=== PATIENT | female | born 1945 | race Caucasian/White ===

== ENCOUNTER → 2016-08-11 | Outpatient (CLI) | payer MEDICARE | END | disposition home or self-care (01) | LOC: PCVCCLINIC 09:53 | PROVIDERS: ATTEND Internal Medicine Cardiovascular Disease | DX: R01.1 Cardiac murmur, unspecified (principal); I10 Essential (primary) hypertension; E78.5 Hyperlipidemia, unspecified; R06.09 Other forms of dyspnea | CPT/HCPCS: 36415; 93005; G0463 ==

== ENCOUNTER → 2016-11-09 | Outpatient (CLI) | payer MEDICARE | END | disposition home or self-care (01) | LOC: PCVCCLINIC 14:36 | PROVIDERS: ATTEND Internal Medicine Cardiovascular Disease | DX: I25.10 Atherosclerotic heart disease of native coronary artery without angina pectoris (principal); I10 Essential (primary) hypertension; I35.0 Nonrheumatic aortic (valve) stenosis; E78.00 Pure hypercholesterolemia, unspecified; Z79.82 Long term (current) use of aspirin | CPT/HCPCS: 93005; G0463 ==

== ENCOUNTER → 2017-05-17 | Outpatient (CLI) | payer MEDICARE | END | disposition home or self-care (01) | LOC: PCVCIMAG 14:08 | PROVIDERS: ATTEND Internal Medicine Cardiovascular Disease | DX: I35.0 Nonrheumatic aortic (valve) stenosis (principal); I10 Essential (primary) hypertension; E78.5 Hyperlipidemia, unspecified | CPT/HCPCS: 36415; 93005; 93306 ==

== ENCOUNTER → 2017-11-29 | Outpatient (CLI) | payer MEDICARE | END | disposition home or self-care (01) | LOC: PCVCCLINIC 13:30 | DX: I10 Essential (primary) hypertension (principal); E78.5 Hyperlipidemia, unspecified; I35.0 Nonrheumatic aortic (valve) stenosis | CPT/HCPCS: 93005; G0463 ==

== ENCOUNTER → 2018-06-06 | Outpatient (CLI) | payer MEDICARE ==
--- NOTE | 2018-06-06 14:08 | PCVCIMAG ---
APPROVED REPORT Study performed: 06/06/2018 13:11:35 EXAM: Comprehensive 2D, Doppler, and color-flow Echocardiogram Patient Location: Echo lab Status: routine BSA: 1.74 HR: 75 bpmBP: 140/80 mmHg Rhythm: NSR Other Information Study Quality: Good Risk Factors: Cardiac Risk Factors: Hyperlipidemia, HTN Indications Aortic stenosis 2D Dimensions IVSd: 14.48 (7-11mm)LVOT Diam: 17.32 (18-24mm) LVDd: 42.32 mm PWd: 12.46 (7-11mm)Ascending Ao: 38.20 (22-36mm) LVDs: 20.10 (25-40mm) Left Atrium: 39.26 (27-40mm) Aortic Root: 30.11 mm Volumes Left Atrial Volume (Systole) Single Plane 4CH: 50.64 mLSingle Plane 2CH: 31.86 mL LA ESV Index: 24.00 mL/m2 Aortic Valve AoV Peak Tor.: 3.13 m/s AO Peak Gr.: 39.20 mmHgLVOT Max P.50 mmHg AO Mean Gr.: 22.09 mmHgLVOT Mean P.47 mmHg AO V2 Mean: 2.23 m/sLVOT Max V: 1.28 m/s AO V2 VTI: 68.21 cm DAHLIA (VTI): 0.90 [id number] V1 VTI: 26.04 cm DAHLIA Vmax: 0.96 cm2 AI Vmax: 4.19 m/s AI [place]: 2.66 m/s2 AI PHT: 481.27 ms Mitral Valve E/A Ratio: 0.7 MV Decel. Time: 225.21 ms MV E Max Tor.: 0.78 m/s MV A Tor.: 1.12 m/s MV PHT: 65.31 ms IVRT: 138.41 ms TDI E/Lateral E': 9.75E/Medial E': 11.14 Medial E' Tor.: 0.07 m/s Lateral E' Tor.: 0.08 m/s Pulmonary Valve PV Peak Gr.: 2.61 mmHg Pulmonary Vein P Vein S: 0.64 m/sP Vein A: 0.31 m/s P Vein D: 0.36 m/sP Vein A Dur.: 86.5 msec P Vein S/D Ratio: 1.78 Tricuspid Valve TR Peak Tor.: 2.49 m/s TR Peak Gr.: 24.77 mmHg Left Ventricle The left ventricle is normal size. There is normal LV segmental wall motion. Mild concentric left ventricular hypertrophy. Left ventricular systolic function is normal. The left ventricular ejection fraction is within the normal range. LVEF is 65%. Grade I - abnormal relaxation pattern. Right Ventricle The right ventricle is normal size. The right ventricular systolic function is normal. Atria The left atrium size is normal. The right atrium size is normal. Aortic Valve The Aortic valve is moderately sclerotic. Mild aortic regurgitation. Mild to moderate aortic stenosis. Peak gradient is 39mmHg. Mean gradient is 23mmHg. Mitral Valve The mitral valve is normal in structure. There is no mitral valve regurgitation noted. No evidence of mitral valve stenosis. Tricuspid Valve The tricuspid valve is normal in structure. Trace tricuspid regurgitation. Pulmonary artery pressure is 32mmHg. Pulmonic Valve The pulmonary valve is normal in structure. There is no pulmonic valvular regurgitation. Great Vessels The aortic root is normal in size. IVC is normal in size and collapses >50% with inspiration. Pericardium There is no pericardial effusion. <Conclusion> The left ventricle is normal size. Mild concentric left ventricular hypertrophy. Left ventricular systolic function is normal. Grade I - abnormal relaxation pattern. The right ventricle is normal size. The left atrium size is normal. Mild aortic regurgitation. Mild to moderate aortic stenosis. The mitral valve is normal in structure. Trace tricuspid regurgitation. Pulmonary artery pressure is 32mmHg.
== END | disposition home or self-care (01) ==
LOC: PCVCIMAG 13:03
PROVIDERS: ATTEND Internal Medicine Cardiovascular Disease
DX: I35.2 Nonrheumatic aortic (valve) stenosis with insufficiency (principal); I10 Essential (primary) hypertension; E78.5 Hyperlipidemia, unspecified; Z79.82 Long term (current) use of aspirin
CPT/HCPCS: 93005; 93306; G0463

== ENCOUNTER → 2019-06-12 | Outpatient (CLI) | payer MEDICARE ==
--- NOTE | 2019-06-12 14:33 | PCVCIMAG ---
APPROVED REPORT Study performed: 06/12/2019 13:13:55 EXAM: Comprehensive 2D, Doppler, and color-flow Echocardiogram Patient Location: Echo lab Room #: 2Status: routine BSA: 1.74 HR: 84 bpm Rhythm: NSR Other Information Study Quality: Good Risk Factors: Cardiac Risk Factors: HTN, Hyperlipidemia Indications Aortic Valve Disease Hypertension/HDD 2D Dimensions IVSd: 10.36 (7-11mm)LVOT Diam: 17.46 (18-24mm) LVDd: 38.88 mm PWd: 10.42 (7-11mm)Ascending Ao: 33.44 (22-36mm) LVDs: 20.53 (25-40mm) Left Atrium: 30.60 (27-40mm) Aortic Root: 28.94 mm LV Single Plane 4CH: 69.82 % LV Single Plane 2CH: 63.94 % Biplane EF: 68.0 % Volumes Left Atrial Volume (Systole) Single Plane 4CH: 64.06 mLSingle Plane 2CH: 41.43 mL Biplane LA Volume: 54.00 mLLA ESV Index: 31.00 mL/m2 Aortic Valve AoV Peak Tor.: 3.32 m/s AO Peak Gr.: 48.58 mmHgLVOT Max P.69 mmHg AO Mean Gr.: 27.04 mmHgLVOT Mean P.32 mmHg AO V2 Mean: 2.47 m/sLVOT Max V: 1.43 m/s AO V2 VTI: 75.13 cmLVOT Mean V: 1.11 m/s DAHLIA (VTI): 1.04 [id number] V1 VTI: 32.62 cm DAHLIA Vmax: 1.03 cm2 AI Vmax: 4.71 m/sSV (LVOT): 78.06 mL AI [place]: 3.51 m/s2 AI PHT: 390.33 ms Mitral Valve E/A Ratio: 0.7 MV Decel. Time: 175.19 ms MV E Max Tor.: 0.76 m/s MV A Tor.: 1.04 m/s MV VTI: 190.15 mm MVA VTI: 410.53 mm2 IVRT: 86.51 ms Pulmonary Valve PV Peak Tor.: 0.97 m/sPV Peak Gr.: 3.75 mmHg Pulmonary Vein P Vein S: 1.00 m/sP Vein A: 0.33 m/s P Vein D: 0.42 m/sP Vein A Dur.: 90.0 msec P Vein S/D Ratio: 2.38 Tricuspid Valve TR Peak Tor.: 2.67 m/s TR Peak Gr.: 28.57 mmHg TV Vmax: 2.36 m/sPA Pressure: 360.06 mmHg Shunt Evaluation QP/QS: 0.03 Left Ventricle The left ventricle is normal size. There is normal LV segmental wall motion. There is normal left ventricular wall thickness. Left ventricular systolic function is normal. The left ventricular ejection fraction is within the normal range. LVEF is 65-70%. Grade I - abnormal relaxation pattern. Right Ventricle The right ventricle is normal size. The right ventricular systolic function is normal. Atria The left atrium size is normal. The right atrium size is normal. Aortic Valve Aortic valve is probably trileaflet. Aortic valve leaflets are moderately sclerotic with decreased opening. Moderate aortic regurgitation. There is moderate valvular aortic stenosis. Maximum pressure gradient of 49 mmHg and mean pressure gradient of 27 mmHg. Mitral Valve The mitral valve is normal in structure. There is no mitral valve regurgitation noted. No evidence of mitral valve stenosis. Tricuspid Valve The tricuspid valve is normal in structure. Mild tricuspid regurgitation with a PA pressure of 36 mmHg. Mild pulmonary hypertension. Pulmonic Valve The pulmonary valve is normal in structure. There is no pulmonic valvular regurgitation. Great Vessels The aortic root is normal in size. The ascending aorta is normal in size. Aortic arch is normal in caliber. IVC is normal in size and collapses >50% with inspiration. Pericardium There is no pericardial effusion. There is no pleural effusion. <Conclusion> The left ventricle is normal size. There is normal left ventricular wall thickness. Left ventricular systolic function is normal. Grade I - abnormal relaxation pattern. The right ventricle is normal size. The left atrium size is normal. There is moderate valvular aortic stenosis. Maximum pressure gradient of 49 mmHg and mean pressure gradient of 27 mmHg. There is no mitral valve regurgitation noted. Mild tricuspid regurgitation with a PA pressure of 36 mmHg.
== END | disposition home or self-care (01) ==
LOC: PCVCIMAG 13:19
PROVIDERS: ATTEND Internal Medicine Cardiovascular Disease
DX: I08.2 Rheumatic disorders of both aortic and tricuspid valves (principal); E78.00 Pure hypercholesterolemia, unspecified; I10 Essential (primary) hypertension; Z79.82 Long term (current) use of aspirin; Z90.09 Acquired absence of other part of head and neck
CPT/HCPCS: 93306; G0463; 36415; 93005